=== PATIENT | female | born 1965 | race Caucasian/White ===

== ENCOUNTER 2017-03-30 20:57 | Emergency (ER) | payer OTHER ==
[~2017-03-30] VITALS: Ht 165.1 cm; Wt 72.6 kg
[~2017-03-30 20:57] MED LIST: IPRA14.7 IH
[2017-03-30] MEDS ORDERED: ONDANSETRON PF 4 MG/2 ML VIAL. IV ONE (21:15)
[2017-03-30] MEDS ORDERED: KETOROLAC 15 MG/ML VIAL. IV ONE (21:15)
[2017-03-30] MEDS ORDERED: HYDROmorphone PF 1 MG/ML DISP.SYRIN IV ONE (21:30)
[2017-03-30 21:32] LABS: BASO # 0.1 x10^3/uL (0.0-0.2); BASO % 1 % (0-3); EOS # 0.3 x10^3/uL (0.0-0.7); EOS % 3 % (0-3); HEMATOCRIT 42.8 % (36.0-47.0); HEMOGLOBIN 14.9 g/dL (12.0-15.5); LYMPH # 4.3 x10^3/uL (1.0-4.8); LYMPH % 42 % (24-48); MEAN CORPUSCULAR HEMOGLOBIN 33 pg (25-35); MEAN CORPUSCULAR HGB CONC 35 g/dL (31-37); MEAN CORPUSCULAR VOLUME 94 fL (79-100); MONO # 0.8 x10^3/uL (0.0-1.1); MONO % 8 % (0-9); NEUT # 4.6 x10^3uL (1.8-7.7); NEUT % 45 % (31-73); PLATELET COUNT 283 x10^3/uL (140-400); RED BLOOD COUNT 4.54 x10^6/uL (3.50-5.40); WHITE BLOOD COUNT 10.1 x10^3/uL (4.0-11.0)
[2017-03-30 21:56] LABS: ALBUMIN 3.6 g/dL (3.4-5.0); ALBUMIN/GLOBULIN RATIO 0.9 (1.0-1.7); CREATININE 0.8 mg/dL (0.6-1.0); GFR 76.2; POTASSIUM 3.5 mmol/L (3.5-5.1); TOTAL BILIRUBIN 0.3 mg/dL (0.2-1.0); TOTAL PROTEIN 7.4 g/dL (6.4-8.2)
[2017-03-30 22:08] LABS: BACTERIA,URINE FEW /HPF (0-FEW); BILIRUBIN,URINE NEG (NEG); CLARITY,URINE CLEAR; COLOR,URINE STRAW; GLUCOSE,URINE NEG (NEG); NITRITE,URINE NEG (NEG); SQUAMOUS EPITHELIAL CELL,UR OCC /LPF; UROBILINOGEN,URINE 0.2 mg/dL (0.2 mg/dL); WBC,URINE OCC /HPF (0-4)
[2017-03-30 22:09] LABS: AMORPHOUS SEDIMENT,UR PRESENT /HPF
[2017-03-30 22:22] VITALS: BP 135/95
--- NOTE | 2017-03-30 22:32 | PHYS DOC ---
Past History Past Medical History: High Cholesterol, Hypertension Past Surgical History: , Other Smoking: Cigarettes Alcohol Use: Rarely Drug Use: None Social History Narrative: Lives home with Adult General Chief Complaint Chief Complaint: CHEST PAIN HPI HPI Patient is a 51-year-old female with history significant for hypertension and COPD presents to the ER today complaining of midsternal chest pressure/ discomfort that started approximately 8:15 PM tonight while she was sitting on the couch. Patient reports associated shortness of breath and discomfort in her left shoulder. Patient reports she has diaphoresis however she relates that to her menopausal symptoms. Patient denies nausea vomiting or diarrhea. Patient has any fevers shakes chills. Patient reports that she has a chronic cough secondary to her COPD however that has not changed. Patient denies any abdominal discomfort. Patient has a dysuria frequency or urgency. Patient denies any exacerbating or relieving factors to the discomfort that she has. Patient denies any increased pain with cough or deep inspiration. Patient's physical exam was unremarkable. Patient's heart was regular rate and rhythm with ectopic beats occasionally. Lungs were clear without any wheezing rales or rhonchi. Patient had tenderness to palpation to her midsternal region however she reports this is not similar to the pain that caused her to coming to the ER today. Patient's abdomen was soft nontender no rebound or guarding. Patient's ER workup was unremarkable. Patient's EKG revealed normal sinus rhythm with nonspecific ST-T wave abnormalities and no evidence of ST elevation NE noted on the EKG. On the patient's heart monitor she did have multiple episodes of PVCs noted. Patient's CBC chemistry and troponin were all within normal limits. Patient's chest x-ray reveals a hyperinflated lungs. Normal heart size. No infiltrates or effusions. No pneumothorax. #1 nonspecific chest pain. Given patient's history of hypertension and her presentation today I am concerned about a cardiac etiology of this discomfort. It is unclear whether or not this is acute coronary syndrome/unstable angina versus noncardiac chest pain. I discussed with the patient her options of admission versus outpatient evaluation and the risks involved with either and her preference is admission. Patient will be transferred to [facility] secondary to lack of hospital beds here at [facility]. Patient is agreement of transfer. I discussed the case with Dr. Garza at [place] that she has agreed to accept the patient and assist with her care. Review of Systems Review of Systems Constitutional: Denies fever or chills [] Eyes: Denies change in visual acuity, redness, or eye pain [] HENT: Denies nasal congestion or sore throat [] All other review systems are negative except as documented in the history of present illness portion. Current Medications Current Medications Current Medications Medications (Trade) Dose Ordered Sig/Mona Start Time Stop Time Status Last Admin Dose Admin Hydromorphone HCl (Dilaudid) 0.5 mg 1X ONCE 03/30/17 21:30 03/30/17 21:31 DC 03/30/17 21:30 0.5 MG Ketorolac Tromethamine (Toradol) 15 mg 1X ONCE 03/30/17 21:15 03/30/17 21:19 DC 03/30/17 21:15 15 MG Ondansetron HCl (Zofran) 4 mg 1X ONCE 03/30/17 21:15 03/30/17 21:20 DC 03/30/17 21:15 4 MG Allergies Allergies Allergies Coded Allergies Type Severity Reaction Last Updated Verified Sulfa (Sulfonamide Antibiotics) Allergy Intermediate Rash 11/17/13 Yes hydrocodone Allergy Intermediate rash 11/17/13 Yes Physical Exam Physical Exam Constitutional: Well developed, well nourished, no acute distress, non-toxic appearance. [] HENT: Normocephalic, atraumatic, bilateral external ears normal, oropharynx moist, no oral exudates, nose normal. [] Eyes: PERRLA, EOMI, conjunctiva normal, no discharge. [] Neck: Normal range of motion, no tenderness, supple, no stridor. [] Lungs & Thorax: Bilateral breath sounds clear to auscultation [] Abdomen: Bowel sounds normal, soft, no tenderness, no masses, no pulsatile masses. [] Skin: Warm, dry, no erythema, no rash. [] Back: No tenderness, no CVA tenderness. [] Extremities: No tenderness, no cyanosis, no clubbing, ROM intact, no edema. [] Neurologic: Alert and oriented X 3, normal motor function, normal sensory function, no focal deficits noted. [] Psychologic: Affect normal, judgement normal, mood normal. [] Current Patient Data Vital Signs Vital Signs Date Time Temp Pulse Resp B/P (MAP) Pulse Ox O2 Delivery O2 Flow Rate FiO2 03/30/17 21:00 97.6 68 22 99 Room Air Lab Results Laboratory Tests Test 03/30/17 21:16 03/30/17 21:50 White Blood Count 10.1 x10^3/uL (4.0-11.0) Red Blood Count 4.54 x10^6/uL (3.50-5.40) Hemoglobin 14.9 g/dL (12.0-15.5) Hematocrit 42.8 % (36.0-47.0) Mean Corpuscular Volume 94 fL (79-100) Mean Corpuscular Hemoglobin 33 pg (25-35) Mean Corpuscular Hemoglobin Concent 35 g/dL (31-37) Red Cell Distribution Width 13.0 % (11.5-14.5) Platelet Count 283 x10^3/uL (140-400) Neutrophils (%) (Auto) 45 % (31-73) Lymphocytes (%) (Auto) 42 % (24-48) Monocytes (%) (Auto) 8 % (0-9) Eosinophils (%) (Auto) 3 % (0-3) Basophils (%) (Auto) 1 % (0-3) Neutrophils # (Auto) 4.6 x10^3uL (1.8-7.7) Lymphocytes # (Auto) 4.3 x10^3/uL (1.0-4.8) Monocytes # (Auto) 0.8 x10^3/uL (0.0-1.1) Eosinophils # (Auto) 0.3 x10^3/uL (0.0-0.7) Basophils # (Auto) 0.1 x10^3/uL (0.0-0.2) Sodium Level 143 mmol/L (136-145) Potassium Level 3.5 mmol/L (3.5-5.1) Chloride Level 107 mmol/L (98-107) Carbon Dioxide Level 27 mmol/L (21-32) Anion Gap 9 (6-14) Blood Urea Nitrogen 10 mg/dL (7-20) Creatinine 0.8 mg/dL (0.6-1.0) Estimated GFR (Cockcroft-Gault) 76.2 BUN/Creatinine Ratio 13 (6-20) Glucose Level 98 mg/dL (70-99) Calcium Level 9.0 mg/dL (8.5-10.1) Total Bilirubin 0.3 mg/dL (0.2-1.0) Aspartate Amino Transferase (AST) 19 U/L (15-37) Alanine Aminotransferase (ALT) 34 U/L (14-59) Alkaline Phosphatase 87 U/L (46-116) Troponin I Quantitative < 0.017 ng/mL (0-0.055) DP-Fsr-V-Type Natriuretic Peptide 66 pg/mL (0-124) Total Protein 7.4 g/dL (6.4-8.2) Albumin 3.6 g/dL (3.4-5.0) Albumin/Globulin Ratio 0.9 (1.0-1.7) L Lipase 158 U/L (73-393) Urine Collection Type Unknown Urine Color Straw Urine Clarity Clear Urine pH 7.0 Urine Specific [place] 1.015 Urine Protein Neg (NEG-TRACE) Urine Glucose (UA) Neg mg/dL (NEG) Urine Ketones (Stick) Neg mg/dL (NEG) Urine Blood Large (NEG) Urine Nitrite Neg (NEG) Urine Bilirubin Neg (NEG) Urine Urobilinogen Dipstick 0.2 mg/dL (0.2 mg/dL) Urine Leukocyte Esterase Neg (NEG) Urine RBC 3-5 /HPF (0-2) Urine WBC Occ /HPF (0-4) Urine Squamous Epithelial Cells Occ /LPF Urine Amorphous Sediment Present /HPF Urine Bacteria Few /HPF (0-FEW) EKG EKG Normal sinus rhythm nonspecific ST-T wave abnormalities no evidence of STEMI interpreted by Dr. Montanez [] Radiology/Procedures Radiology/Procedures [] Normal heart size no infiltrates or effusions hyperinflated lungs no evidence of pneumothorax. Interpreted by Dr. Montanez Course & Med Decision Making Course & Med Decision Making Pertinent Labs and Imaging studies reviewed. (See chart for details) [] Dragon Disclaimer Dragon Disclaimer This chart was dictated in whole or in part using Voice Recognition software in a busy, high-work load, and often noisy Emergency Department environment. It may contain unintended and wholly unrecognized errors or omissions. Departure Departure: Impression: Primary Impression: Chest pain Additional Impression: Acute coronary syndrome Disposition: 05 XFER OTHER ([facility]) Admitting Physician: Other (Dr. Garza) Condition: IMPROVED Referrals: RAJANI TSAI (PCP) Problem Qualifiers Primary Impression: Chest pain Chest pain type: unspecified Qualified Codes: R07.9 - Chest pain, unspecified JOANN MELÉNDEZ MD March 30, 2017 22:32
[2017-03-30] MEDS ORDERED: ASPIRIN ENTERIC COATED 325 MG TABLET.DR. PO ONE (23:00)
--- NOTE | 2017-03-31 06:44 | EKG ---
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
--- NOTE | 2017-03-31 08:19 | RAD ---
EXAM: CHEST 2 VIEWS History: Chest pain COMPARISON: 11/17/2013 TECHNIQUE: PA and lateral chest radiographs FINDINGS: The cardiomediastinal silhouette is within normal limits. Minimal prominent appearing perihilar interstitial lung markings grossly similar to prior exam likely chronic. The costophrenic sulci are clear and well demarcated bilaterally. IMPRESSION: No radiographic evidence of an acute cardiopulmonary abnormality.
== END 2017-03-30 23:06 | disposition short-term general hospital (02) ==
LOC: ER 20:57
DX: I24.9 Acute ischemic heart disease, unspecified (principal); I10 Essential (primary) hypertension; E78.00 Pure hypercholesterolemia, unspecified; J44.9 Chronic obstructive pulmonary disease, unspecified; F17.210 Nicotine dependence, cigarettes, uncomplicated; Z88.2 Allergy status to sulfonamides; Z88.6 Allergy status to analgesic agent
CPT/HCPCS: 36415; 71020; 80053; 81001; 83690; 83880; 84484; 85027; 93005; 96374; 96375; 99285; J1170; J1885; J2405

== ENCOUNTER → 2017-08-05 | Outpatient (CLI) | payer OTHER ==
--- NOTE | 2017-08-05 10:34 | RAD ---
Indication pain. No history of injury. A standing AP view, incorporating both knees was obtained as well as individual AP and lateral views of the knees. There is no significant degenerative change seen involving either knee. An acute finding is not apparent. There is a chondroid lesion in the distal left femoral diaphysis likely reflecting either an enchondroma or bone infarct. Other etiologies are not entirely excluded. Clinical correlation as to the necessity for additional evaluation of this finding advised. IMPRESSION: No acute or definite significant finding seen on plain films of the knees. Chondroid lesion distal left femoral diaphysis. See above discussion
== END | disposition home or self-care (01) ==
LOC: DXRAD 09:21
PROVIDERS: ATTEND Family Medicine
DX: M25.862 Other specified joint disorders, left knee (principal); M25.561 Pain in right knee
CPT/HCPCS: 73562

== ENCOUNTER 2020-06-06 20:33 | Observation (INO) | payer BC, OTHER ==
[~2020-06-06] VITALS: Ht 165.1 cm; Wt 76.9 kg
--- NOTE | 2020-06-06 | NUR ---
Admission Note: Pt transported via EMS from ED to ICU room 5. Pt able to ambulate from cart to bed independently, steady gait observed. VSS. No c/o pain or n/v at this time. Telemetry applied, pt in NSR, Oxygen is 98% on RA. Admission documentation completed. Oriented pt to room including toilet, monitors, bed controls, and call light. Will continue to monitor.
[2020-06-06 21:12] LABS: BASO # 0.1 x10^3/uL (0.0-0.2); BASO % 1 % (0-3); EOS # 0.4 x10^3/uL (0.0-0.7); EOS % 5 % (0-3); HEMATOCRIT 45.1 % (36.0-47.0); HEMOGLOBIN 15.6 g/dL (12.0-15.5); LYMPH # 3.5 x10^3/uL (1.0-4.8); LYMPH % 39 % (24-48); MEAN CORPUSCULAR HEMOGLOBIN 33 pg (25-35); MEAN CORPUSCULAR HGB CONC 35 g/dL (31-37); MEAN CORPUSCULAR VOLUME 95 fL (79-100); MONO # 0.8 x10^3/uL (0.0-1.1); MONO % 9 % (0-9); NEUT # 4.1 x10^3uL (1.8-7.7); NEUT % 46 % (31-73); PLATELET COUNT 362 x10^3/uL (140-400); RED BLOOD COUNT 4.77 x10^6/uL (3.50-5.40); RED CELL DISTRIBUTION WIDTH 13.2 % (11.5-14.5); WHITE BLOOD COUNT 8.9 x10^3/uL (4.0-11.0)
[2020-06-06] MEDS ORDERED: IPRATRPIUM/ALBUTEROL 0.5/2.5MG 3 ML NEBU. ONE (21:14)
[2020-06-06 21:20] LABS: CREATININE 1.1 mg/dL (0.6-1.0); POTASSIUM 3.6 mmol/L (3.5-5.1)
[2020-06-06 21:25] LABS: ALBUMIN 3.7 g/dL (3.4-5.0); ALBUMIN/GLOBULIN RATIO 0.9 (1.0-1.7); TOTAL BILIRUBIN 0.3 mg/dL (0.2-1.0); TOTAL PROTEIN 7.7 g/dL (6.4-8.2)
[2020-06-06] MEDS ORDERED: IPRATRPIUM/ALBUTEROL 0.5/2.5MG 3 ML NEBU. NEB ONE (21:30)
--- NOTE | 2020-06-06 21:33 | PHYS DOC ---
Past History Past Medical History: High Cholesterol, Hypertension Past Surgical History: , Other Smoking: Cigarettes Alcohol Use: Rarely Drug Use: None General Adult EDM: Chief Complaint: SHORTNESS OF BREATH HPI: HPI: 55-year-old female presents with increasing shortness of breath. She has had worsening shortness of breath for last couple of days. She has known COPD. She has been taking her breathing treatments. She usually is able to control it at home and not, hospital. She was sitting on the couch tonight and just felt like her heart was beating fast and her shortness of breath was more bothersome than she could put up with. She denies fever chills. Review of Systems: Review of Systems: Constitutional: Denies fever or chills Eyes: Denies change in visual acuity HENT: Denies nasal congestion or sore throat Respiratory: Shortness of breath Cardiovascular: Denies chest pain or edema GI: Denies abdominal pain, nausea, vomiting, bloody stools or diarrhea : Denies dysuria Musculoskeletal: Denies back pain or joint pain Integument: Denies rash Neurologic: Denies headache, focal weakness or sensory changes Endocrine: Denies polyuria or polydipsia Lymphatic: Denies swollen glands Psychiatric: Denies depression or anxiety Heart Score: Risk Factors: Risk Factors: DM, Current or recent (<one month) smoker, HTN, HLP, family history of CAD, obesity. Risk Scores: Score 0 - 3: 2.5% MACE over next 6 weeks - Discharge Home Score 4 - 6: 20.3% MACE over next 6 weeks - Admit for Clinical Observation Score 7 - 10: 72.7% MACE over next 6 weeks - Early Invasive Strategies Current Medications: Current Meds: Current Medications Medications (Trade) Dose Ordered Sig/Mona Start Time Stop Time Status Last Admin Dose Admin Albuterol/ Ipratropium (Duoneb) 3 ml 1X ONCE 06/06/20 21:30 06/06/20 21:31 Methylprednisolone Sodium Succinate (SOLU-Medrol 125MG VIAL) 125 mg 1X ONCE 06/06/20 21:30 06/06/20 21:31 UNV Allergies: Allergies: Allergies Coded Allergies Type Severity Reaction Last Updated Verified Sulfa (Sulfonamide Antibiotics) Allergy Intermediate Rash 11/17/13 Yes hydrocodone Allergy Intermediate rash 11/17/13 Yes Physical Exam: PE: Constitutional: Well developed, well nourished, no acute distress, non-toxic appearance. [] HENT: Normocephalic, atraumatic, bilateral external ears normal, oropharynx moist, no oral exudates, nose normal. [] Eyes: PERRLA, EOMI, conjunctiva normal, no discharge. [] Neck: Normal range of motion, no tenderness, supple, no stridor. [] Cardiovascular: Heart rate regular rhythm, no murmur [] Lungs & Thorax: Bilateral breath sounds diminished with expiratory wheezing [] Abdomen: Bowel sounds normal, soft, no tenderness, no masses, no pulsatile masses. [] Skin: Warm, dry, no erythema, no rash. [] Back: No tenderness, no CVA tenderness. [] Extremities: No tenderness, no cyanosis, no clubbing, ROM intact, no edema. [] Neurologic: Alert and oriented X 3, normal motor function, normal sensory function, no focal deficits noted. [] Psychologic: Affect normal, judgement normal, mood concerned. [] Current Patient Data: Labs: Laboratory Tests Test 06/06/20 20:52 White Blood Count 8.9 x10^3/uL (4.0-11.0) Red Blood Count 4.77 x10^6/uL (3.50-5.40) Hemoglobin 15.6 g/dL (12.0-15.5) H Hematocrit 45.1 % (36.0-47.0) Mean Corpuscular Volume 95 fL (79-100) Mean Corpuscular Hemoglobin 33 pg (25-35) Mean Corpuscular Hemoglobin Concent 35 g/dL (31-37) Red Cell Distribution Width 13.2 % (11.5-14.5) Platelet Count 362 x10^3/uL (140-400) Neutrophils (%) (Auto) 46 % (31-73) Lymphocytes (%) (Auto) 39 % (24-48) Monocytes (%) (Auto) 9 % (0-9) Eosinophils (%) (Auto) 5 % (0-3) H Basophils (%) (Auto) 1 % (0-3) Neutrophils # (Auto) 4.1 x10^3uL (1.8-7.7) Lymphocytes # (Auto) 3.5 x10^3/uL (1.0-4.8) Monocytes # (Auto) 0.8 x10^3/uL (0.0-1.1) Eosinophils # (Auto) 0.4 x10^3/uL (0.0-0.7) Basophils # (Auto) 0.1 x10^3/uL (0.0-0.2) Sodium Level 139 mmol/L (136-145) Potassium Level 3.6 mmol/L (3.5-5.1) Chloride Level 101 mmol/L (98-107) Carbon Dioxide Level 26 mmol/L (21-32) Anion Gap 12 (6-14) Blood Urea Nitrogen 21 mg/dL (7-20) H Creatinine 1.1 mg/dL (0.6-1.0) H Estimated GFR (Cockcroft-Gault) 52.0 BUN/Creatinine Ratio 19 (6-20) Glucose Level 144 mg/dL (70-99) H Calcium Level 9.0 mg/dL (8.5-10.1) Total Bilirubin 0.3 mg/dL (0.2-1.0) Aspartate Amino Transferase (AST) 15 U/L (15-37) Alanine Aminotransferase (ALT) 26 U/L (14-59) Alkaline Phosphatase 100 U/L (46-116) Troponin I Quantitative < 0.017 ng/mL (0-0.055) Total Protein 7.7 g/dL (6.4-8.2) Albumin 3.7 g/dL (3.4-5.0) Albumin/Globulin Ratio 0.9 (1.0-1.7) L EKG: EKG: Sinus rhythm, rate 82, normal axis, no ST elevations or depressions. [] Radiology/Procedures: Radiology/Procedures: [] Impressions: EXAM: AP View of the chest DATE: 06/06/2020 8:52 PM INDICATION: Shortness of breath COMPARISON: No Prior FINDINGS: The heart is not enlarged. Mediastinal and hilar contours are normal. No lobar consolidation although there is mild interstitial prominence in the right greater than left lung base.No pleural effusion or pneumothorax. IMPRESSION: Nonspecific interstitial/reticular prominence in the lung bases may represent atypical infectious or inflammatory process. Atelectasis may also have this appearance. Electronically signed by: Jameson Rodriguez MD (06/06/2020 9:29 PM) [facility] DICTATED AND SIGNED BY: JAMESON RODRIGUEZ MD DATE: 06/06/202128 CC: TEENA JANG DO; HARMAN MEJIA MD ~ Course & Med Decision Making: Course & Med Decision Making Pertinent Labs and Imaging studies reviewed. (See chart for details) The patient's EKG is unremarkable. She does appear to be having a COPD exacerbation. 1 DuoNeb treatment has improved her wheezing significantly. I will also give her 125 of Solu-Medrol. We will observe her poor. To see if the breathing treatment is enough or if she will need admitted. She has not had to be admitted in the past. Patient's labs are unremarkable. Her urinalysis does show hematuria. There does not appear to be infection. The patient is a smoker and I have made her aware of these findings. She should follow-up with her primary doctor for repeat urinalysis. The patient is wheezing again. I talked her about admission and she has agreed. I believe she would be best served with further treatment and admission. I spoke with Dr. Long and he has accepted the patient for admission. [] Dragon Disclaimer: Dragon Disclaimer: This electronic medical record was generated, in whole or in part, using a voice recognition dictation system. Departure Departure: Impression: Primary Impression: COPD (chronic obstructive pulmonary disease) Qualified Codes: J44.1 - Chronic obstructive pulmonary disease with (acute) exacerbation Disposition: ADMITTED INPATIENT Admitting Physician: Yusuf Long Condition: STABLE Referrals: HARMAN MEJIA MD (PCP) Justification of Admission: Justification of Admission: Justification of Admission Dx: Yes Comments: COPD exacerbation TEENA JANG DO Jun 06, 2020 21:32
[2020-06-06 21:45] LABS: BILIRUBIN,URINE NEG (NEG); CLARITY,URINE HAZY; COLOR,URINE YELLOW; GLUCOSE,URINE NEG (NEG); NITRITE,URINE NEG (NEG); RBC,URINE >40 /HPF (0-2); UROBILINOGEN,URINE 0.2 mg/dL (0.2 mg/dL)
[2020-06-06 21:46] LABS: BACTERIA,URINE MOD /HPF (0-FEW); SQUAMOUS EPITHELIAL CELL,UR MOD /LPF
[2020-06-06] MEDS ORDERED: methylPREDNISolone SOD SUCC PF 125 MG/2 ML VIAL. IV ONE (22:00)
[2020-06-06] MEDS ORDERED: ONDANSETRON PF 4 MG/2 ML VIAL. IVP PRN (22:15)
[2020-06-06 23:54] VITALS: BP 137/74
[2020-06-07] MEDS ORDERED: IPRA4AER PO (00:16)
[2020-06-07] MEDS ORDERED: BUDE10.2 PO (00:16)
[2020-06-07] MEDS ORDERED: VARE1TAB21 PO (00:16)
[2020-06-07] MEDS ORDERED: BACL10TA PO (00:16)
[2020-06-07] MEDS ORDERED: IPRATRPIUM/ALBUTEROL 0.5/2.5MG 3 ML NEBU. ONE (04:53)
[2020-06-07] MEDS: IPRATRPIUM/ALBUTEROL 0.5/2.5MG 3 ML NEBU. NEB SCH ×2 (05:06→10:44)
--- NOTE | 2020-06-07 06:22 | NUR ---
Shift Note: Pt was able to sleep once admission was completed. Pt does not require oxygen to maintain saturations >92% during sleep. Home medications are entered but not ordered at this time. Pt was given solumedrol in ED but order not continued, will advise dayshift to obtain order from Dr. Long to continue. RT tx given this morning.
[2020-06-07] MEDS ORDERED: methylPREDNISolone SOD SUCC PF 125 MG/2 ML VIAL. IV SCH (07:15)
[2020-06-07 10:12] VITALS: BP 114/75
--- NOTE | 2020-06-07 14:42 | EKG ---
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
[2020-06-07] MEDS ORDERED: DOXY100C2 PO (14:57)
[2020-06-07] MEDS ORDERED: IPRA3AMP29 NEB (14:57)
[2020-06-07] MEDS ORDERED: NON FORMULARY ITEM (Ipratropium/Albuterol Sulfate (Combivent Respimat Inhal) 1 PUFF) PO PRN (15:00)
[2020-06-07] MEDS ORDERED: BACLOFEN 10 MG TABLET PO PRN (15:00)
--- NOTE | 2020-06-07 15:05 | DS ---
DATE OF DISCHARGE: 06/07/2020 HOSPITAL COURSE: The patient was admitted yesterday with COPD exacerbation. She was treated with IV Solu-Medrol and nebulized albuterol and Atrovent and did very well. PHYSICAL EXAMINATION: GENERAL: When I saw her this afternoon, she was resting almost flat in bed, in no apparent respiratory distress. No pallor, jaundice, cyanosis or thyromegaly. No jugular venous distention. No lower limb edema. VITAL SIGNS: Her heart rate was 95, blood pressure was 114/75, temperature was 98.1, respiratory rate was 17 and oxygen saturation was 94%. HEAD, EYES, EARS, NOSE AND THROAT: Showed normocephalic, atraumatic. NECK: Supple. CARDIAC: Normal first and second heart sounds with no gallop, rub or murmur. CHEST: Clear to auscultation. No crepitation or rhonchi. ABDOMEN: Distended, soft, nontender. NEUROLOGIC: She was awake, alert, responding appropriately. All cranial nerves intact. EXTREMITIES: She moves extremities without difficulty. She ambulates without assistance or assistive devices. Her intake and output are incompletely recorded. DISCHARGE MEDICATIONS: The patient was discharged home to continue on a tapering course of steroids and nebulized albuterol and Atrovent, Levaquin 500 mg once a day and also all her home medication. FINAL DISCHARGE DIAGNOSES: Chronic obstructive pulmonary disease exacerbation, questionable community-acquired pneumonia and possible urinary tract infection. NEMO FORREST MD DR: YELITZA/ronda JOB#: [id number] / [id number]
[2020-06-07 15:40] VITALS: BP 110/55
--- NOTE | 2020-06-07 15:43 | NUR ---
PT did well today, pt is able to verbalize understanding of discharge instructions and medications. PT given Rx. PT left amb via private vehicle with friend driving. Sloan BRADLEY
--- NOTE | 2020-06-07 15:49 | HP ---
ADMIT DATE: HISTORY OF PRESENT ILLNESS: The patient is a 55-year-old female patient who came to the Emergency Room with complaint of worsening shortness of breath that started 4 days ago, associated with cough with whitish sputum. She denied any chest pain, denied any chills, rigors, or fever. Denied any hemoptysis. She was evaluated in the Emergency Room. Her white cell count was normal and chemistry was unremarkable. Chest x-ray showed that she has nonspecific interstitial/reticular prominence in the lung bases, may represent atypical infectious or inflammatory process, atelectasis may also have this appearance. The patient was treated with IV Solu-Medrol, together with DuoNeb nebulizer and was admitted for further evaluation and treatment. PAST MEDICAL HISTORY: Significant for chronic obstructive pulmonary disease, hyperlipidemia, and osteoarthritis. PAST SURGICAL HISTORY: Significant for C2-C3 cervical spine fusion, carpal tunnel syndrome, and 3 C-sections. ALLERGIES: She is allergic to PENICILLIN, SULFA, HYDROCODONE AND TRAMADOL. MEDICATIONS: She is currently on following medications: She is on ipratropium bromide, albuterol for Combivent inhaler 1 inhalation twice a day. She is on baclofen 10 mg 4 times a day, Chantix 1 mg p.o. b.i.d. and Symbicort 160/4.5 two puffs twice a day. FAMILY HISTORY: She has 1 sister and 3 brothers, all seemingly healthy. Her father at the age of 76. Mother is still alive and has AFib and she is a breast cancer survivor. SOCIAL HISTORY: She is . She has 1 daughter and 3 sons. She is currently an everyday smoker. She smokes about 6 cigarettes a day and she is on Chantix, attempting to quit smoking. She drinks alcohol occasionally. She does not use any drugs. She works at [employer]. 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 REVIEW OF SYSTEMS: As per history of present illness. On arrival to the Emergency Room, she was tachypneic, but there was no pallor, jaundice, cyanosis or thyromegaly. No jugular venous distention. No limb edema. VITAL SIGNS: Her heart rate was 97, blood pressure was 141/87, temperature was 98.2, respiratory rate was 40 and oxygen saturation was 94%. HEAD, EYES, EARS, NOSE AND THROAT: Showed normocephalic, atraumatic. NECK: Supple. HEART: Showed normal first and second heart sounds. No gallop, rub or murmur. CHEST: Clear to auscultation. No crepitation or rhonchi. Actually, she has expiratory wheezes diffusely in both sides. No crepitation. ABDOMEN: Soft, nontender. NEUROLOGIC: She was alert, oriented x 3 with normal motor and sensory function. LABORATORY DATA: On arrival to the Emergency Room showed her white cell count to be 8900, hemoglobin 15.6, hematocrit 45, MCV 95, and platelet count 362,000. Serum sodium was 139, potassium 3.6, chloride 101, bicarbonate 26, anion gap of 12, BUN 21, creatinine 1.1, estimated GFR was 52 mL per minute. Her glucose 144, calcium was 9. Total bilirubin, AST, ALT, alkaline phosphatase were normal. Total protein was 7.7, albumin was 3.7. Urinalysis showed the urine was yellow, hazy with a pH of 5.5, specific gravity 1.025, a small amount of protein. The urine was negative for glucose, ketones, large amount of blood, negative for nitrite, negative for leukocyte esterase, more than 40 rbc's, very few wbc's and moderate amount of bacteria. Her chest x-ray showed that she has nonspecific interstitial/reticular prominences in the lung bases, may represent atypical infectious or inflammatory process, atelectasis, may also give this appearance. PLAN: The patient was admitted with COPD exacerbation. She was treated with nebulized albuterol and Atrovent as well as was given 125 mg of Solu-Medrol, continued on Solu-Medrol and Atrovent. For some reason, she was not given any antibiotics with final admission diagnosis, chronic obstructive pulmonary disease exacerbation, hyperlipidemia and generalized osteoarthritis. NEMO FORREST MD DR: YELITZA/ronda JOB#: [id number] / [id number]
[2020-06-07] MEDS ORDERED: IPRATRPIUM/ALBUTEROL 0.5/2.5MG 3 ML NEBU. NEB SCH (16:00)
[2020-06-07] MEDS ORDERED: BUDESONIDE 0.5 MG/2 ML NEBU NEB SCH (20:00)
[2020-06-07] MEDS ORDERED: IPRATROPIUM IH SCH (21:00)
[2020-06-07] MEDS ORDERED: VARENICLINE 1 MG TABLET. PO SCH (21:00)
[2020-06-07] MEDS ORDERED: NON FORMULARY ITEM (Budesonide/Formoterol Fumarate (Symbicort 160-4.5 Mcg Inhaler) 2 PUFF) PO SCH (21:00)
[2020-06-07] MEDS ORDERED: ALBUTEROL SULFATE IH SCH (21:00)
== END 2020-06-07 15:20 | disposition home or self-care (01) ==
LOC: ER 20:33 → ICU 22:00 → INTOOBSV 22:00
PROVIDERS: ADMIT Internal Medicine; ATTEND Internal Medicine
DX: J44.1 Chronic obstructive pulmonary disease with (acute) exacerbation (principal); E78.5 Hyperlipidemia, unspecified; M19.90 Unspecified osteoarthritis, unspecified site; F17.210 Nicotine dependence, cigarettes, uncomplicated; E78.00 Pure hypercholesterolemia, unspecified; I10 Essential (primary) hypertension; Z79.899 Other long term (current) drug therapy
CPT/HCPCS: 36415; 71045; 80053; 81001; 84484; 85025; 87086; 93005; 94640; 96374; 96376; 99285; G0378; J2930; G0379